=== PATIENT | male | born 1965 | race Caucasian/White ===

== ENCOUNTER 2023-12-29 13:21 | Outpatient (CLI) | payer OTHER, SELFPAY ==
--- NOTE | 2023-12-29 13:28 | ECG_ITS ---
Test Date: 2023-12-29 13:59:38 Measurements Intervals [place] Rate: 73 P: 26 KS: 171 QRS: 31 QRSD: 110 T: 25 QT: 379 QTc: 418 Interpretive Statements SINUS RHYTHM BORDERLINE R WAVE PROGRESSION, ANTERIOR LEADS BASELINE ARTIFACT- II, III, AVR, AVF, V6 BORDERLINE ECG No previous ECG available for comparison Electronically Signed On 12-29-2023 14:00:56 CDT by Arnoldo Mcfarland D.O.
[2023-12-29 14:31] LABS: Anion Gap 15 mmol/L (4-12); Blood Urea Nitrogen 19 mg/dL (9-20); Calcium 10.4 mg/dL (8.4-10.2); Carbon Dioxide 21 mmol/L (22-30); Chloride 104 mmol/L (98-107); Estimated Glomerular Filt Rate > 60; Glucose 86 mg/dL (65-110); Potassium 3.5 mmol/L (3.4-5.0); Sodium 140 mmol/L (137-145)
== END 2023-12-29 13:22 | disposition home or self-care (01) ==
PROVIDERS: Anesthesiology; PCP Family Medicine; Visit Provider Surgery
DX: K40.20 Bilateral inguinal hernia, without obstruction or gangrene, not specified as recurrent (principal); K42.9 Umbilical hernia without obstruction or gangrene; I10 Essential (primary) hypertension; Z79.899 Other long term (current) drug therapy; R94.31 Abnormal electrocardiogram [ECG] [EKG]
CPT/HCPCS: 36415; 80048; 86850; 86900; 86901; 93005

== ENCOUNTER 2024-01-06 02:04 | Day surgery (SDC) | payer OTHER, SELFPAY ==
[2023-12-28 10:40] VITALS: BMI 34.6
--- NOTE | 2023-12-28 10:54 | PC.NURSE ---
Addendum entered by Sincere Salazar RN 12/28/23 11:09: No Chewing tobacco day of surgery. Original Note: Report to the Outpatient Waiting Room, entrance under the green pavilion located off [facility], at time _1000_ on date _[id number]_. Planned Procedure Time: _1200_.? Time changes happen often and if your time is changed the preop area will call you the afternoon before. - You and your visitor will be asked to self-screen and do not enter if you have any COVID symptoms. Please call surgeon if you need to reschedule. - A mask is optional within the hospital at this time. Patients may have clear liquids (water, carbonated beverages, clear teas, apple juice) until 3 hours prior to surgery with a maximum of 20 ounces. - No food from midnight until time of surgery and no smoking Take only the following medications with a SIP of water on the morning of surgery: ___Amlodipine DO NOT STOP ANY OF YOUR OTHER PRESCRIPTION MEDICATIONS PRIOR TO SURGERY EXCEPT THE FOLLOWING Medications to discontinue per physician Phillip says he's stopping the Ibuprofen switching to tylenol. Please no make-up, nail indonesian, hairspray, perfume, deodorant, or body powder the day of surgery.? No jewelry (including any body piercings) or valuables the day of surgery, leave them at home.? Please take a shower or bath the night before, or the morning of, surgery with an antibacterial soap.? Wear comfortable, loose fitting clothing.? - Jewelry must be removed prior to entering the operating room.? Rings and piercings that are not removed may be cut off. - The hospital will not accept responsibility for valuables.? - Please leave all valuables, including medications, at home the day of surgery. If you are going home after surgery, a licensed armor reconnaissance vehicle driver must drive you home.? - NO public transportation without another adult if you receive anesthesia. - We recommend that an adult stay with you for 24 hours following discharge. - We also recommend that you do not drive, make important decision, drink alcoholic beverages, or take any drugs that were not prescribed by your health care provider for at least 24 hours after your discharge time. Follow any additional instructions given to you from your surgeon. Telephone instructions given to __Billy___and asked if any additional questions and then verbalized understanding. Patient advised to call surgeon office or pre surgery nurse liaison [phone] if any additional questions.
--- NOTE | 2024-01-06 10:15 | WPDHPUPDATE1 ---
History and Physical Update Update Date/Time: 01/06/24 10:15 History and Physical has been reviewed, including an updated exam of the patient. There are NO changes in the patient's condition. Risks, benefits, and alternatives have been discussed and questions answered. Patient agrees to proceed with procedure.
[2024-01-06 10:43] VITALS: BMI 34.4
[2024-01-06] MEDS: LACTATED RINGERS 1,000 ML 30 ML IV CONT ×2 (10:44→14:45)
[2024-01-06] MEDS: ACETAMINOPHEN 500 MG TABLET 1000 MG PO (10:57)
[2024-01-06] MEDS: KETOROLAC 15 MG/ML VIAL (*BKC) IV PUSH (10:57)
--- NOTE | 2024-01-06 11:58 | WPDANESEPPF ---
Anes - Initial Pre Proc Eval Procedure: Operation Date: 01/06/24 12:00 Proposed Procedures p Robotic Bilateral Inguinal Hernia Repair with Mesh, - Jessica Martinez MD s Open Umbilical Hernia Repair with Mesh - Jessica Martinez MD Date/Time: 01/06/24 11:58 Surgeon: Jessica Martinez MD Pre Op Diagnosis: Bilateral Inguinal Hernia, umbilical hernia Patient Data Age: 58 Gender: M Height: 1.78 m Weight: 109 kg Allergies Allergy/AdvReac Type Severity Reaction Status Date / Time Penicillins AdvReac Unknown VOMITTING Verified 01/06/24 10:39 Home Medications Medication Instructions Recorded Confirmed Type ibuprofen 800 mg tablet See Rx Instructions .Route 09/16/23 12/28/23 Rx .COMPLEX #90 tabs amlodipine 10 mg tablet (Norvasc) 10 mg PO DAILY #90 tabs 10/11/23 12/28/23 Rx hydrochlorothiazide 12.5 mg tablet 12.5 mg PO DAILY #90 tabs 10/11/23 12/28/23 Rx valsartan 160 mg tablet 320 mg PO DAILY #180 tabs 10/11/23 12/28/23 Rx allopurinol 100 mg tablet 200 mg PO DAILY #180 tabs 10/19/23 12/28/23 Rx Patient hx anesthesia problems: none Family hx anesthesia problems: none Results Review: All pre-operative results and documents have been reviewed as part of the pre-operative evaluation. [facility] Past Medical History Medical History Alcohol abuse Chronic gout Essential hypertension Impacted cerumen, bilateral Family History Family History Father Patient's father is in good health Mother Family history of malignant neoplasm of breast in first degree relative Family history of malignant neoplasm Social History Social History Smoking status: Never smoker Smokeless tobacco user: chewing tobacco Alcohol intake: current Drinks per week: 14 Substance use: never Do You Feel Safe in your Home?: Yes Lack of Transportation: No Lack of Food: Never True Current Housing: I Have Housing Concerned About Future Housing: No Difficulty Paying Gas/Electric Bills: No Difficulty Paying for Meds: No Currently Unemployed: No Education: Decline to Answer Difficulty w/ Childcare or Family Care: No Living arrangements: with family Occupation/Education: occupation Gender identity (if verbalized by the patient): Male Sexual Orientation (if Verbalized by the Patient): Straight or Heterosexual Spiritual care concerns: No Anes - Eval Final PreProcedure Day of Procedure 01/06/24 11:58 Patient weight: obese Heart: regular rate and rhythm Lungs: decreased breath sounds Airway: Mallampati scale class II Neurological: alert and oriented Last oral intake: >/= 8 hours ASA classification: III Emergent: no Anesthetic plan: proceed Anesthesia type and monitoring: general ETT and standard monitoring Results Review: All pre-operative results and documents have been reviewed as part of the pre-operative evaluation. Informed Consent: The patient's anesthetic plan and its attendant risks and benefits were discussed with the patient/family/POA. Questions were solicited and answers provided to the satisfaction of the patient/family/POA.
[2024-01-06] MEDS: ceFAZolin 2 GM/D5W 50 ML 2 GM/50 ML BAG IVPB (12:12)
[2024-01-06] MEDS: BUPIVACAINE/EPINEPHRINE 0.5% 50 ML VIAL 30 ML INFILTRATE (13:01)
--- NOTE | 2024-01-06 14:34 | W.PM.PROC2 ---
Procedure Note - Detailed Date of Procedure 01/06/24 Pre-op Diagnosis Bilateral Inguinal Hernia, umbilical hernia with defect measuring 3.5 cm Post-op Diagnosis Same Procedure Performed robotic assisted bilateral inguinal hernia repair with mesh, open umbilical hernia repair with defect measuring 3.5 cm with mesh Surgeon Jessica Martinez MD Anesthesia General and Local Indications 58-year-old male presenting to the office with bilateral inguinal hernia right greater than left, umbilical hernia Findings left pantaloon hernia, large right indirect hernia, umbilical hernia with 3.5 cm defect Description of Procedure Patient was brought into the operating room and placed in the supine position. After adequate induction of general anesthesia, the patient was prepped and draped in normal sterile fashion. A time-out was then done to verify the patient's identity, as well as the procedure being performed. I began by making a 8 mm incision in the supraumbilical region, a Veress needle was then placed into the peritoneal cavity. CO2 gas was then insufflated and after adequate pneumoperitoneum was achieved, the Veress needle was removed. I then placed an 8 mm trocar through this incision. I then placed the endoscope through this trocar site and under direct visualization placed 2 further 8 mm ports in the right and left mid abdomen. The [employer] robot was then docked to the 3 trocar sites. I then scrubbed out and went to the robotic console. Upon examining the pelvis, it was noted that the patient had a moderate left inguinal hernia. The right side was examined and a large hernia defect was noted. I began by making a preperitoneal flap approximately 6 cm superior to the left sided defect. This flap was carried medially past the umbilical ligaments and laterally to the transversalis. It then began dissection of my medial compartment taking this down to the pubic tubercle. Upon dissection of this area, a small direct hernia was encountered. I was able to dissect and reduce this direct hernia. I then began the lateral dissection taking this down to the transversalis fascia. Once these compartments were achieved, I began dissection around the cord structures. A moderate sized indirect hernia was noted at this point. Using careful dissection, was able to reduce indirect hernia sac off the cord structures. Once this was adequately done, I went ahead and placed a large piece of 3D Max mesh into the abdominal cavity. The mesh was carefully positioned, centering the center of the mesh over the indirect defect. Once this was done, was very satisfied with our repair. Using 3-0 Vicryl sutures, I tacked the mesh medially to Shawn's ligament. Two lateral sutures were placed from the mesh to the transversalis fascia. I then began on the right side by making a preperitoneal flap approximately 6 cm superior to the right sided defect. This flap was carried medially past the umbilical ligaments and laterally to the transversalis. It then began dissection of my medial compartment taking this down to the pubic tubercle. I then began the lateral dissection taking this down to the transversalis fascia. Once these compartments were achieved, I began dissection around the cord structures. A large indirect hernia was noted at this point. Using careful dissection, was able to reduce indirect hernia sac off the cord structures. There was also a very large lipoma of the cord that was reduced. Once this was adequately done, I went ahead and placed a large piece of 3D Max mesh into the abdominal cavity. The mesh was carefully positioned, centering the center of the mesh over the indirect defect. Once this was done, was very satisfied with our repair. Using 3-0 Vicryl sutures, I tacked the mesh medially to Shawn's ligament. Two lateral sutures were placed from the mesh to the transversalis fascia.I then closed the peritoneal flap bilaterally with running 2.0 V Lock suture x 2. Th
[2024-01-06 14:45] VITALS: BP 134/98; PULSE 125; RESP 20; TEMP 36.7; O2SAT 100
[2024-01-06 15:00] VITALS: BP 121/81; PULSE 102; RESP 18; O2SAT 99
[2024-01-06 15:15] VITALS: BP 127/81; PULSE 98; RESP 18; O2SAT 94
[2024-01-06] MEDS: fentaNYL CITRATE INJ (*CRX) 100 MCG/2 ML VIAL 25 MCG IV PUSH ×4 (15:17→15:26)
[2024-01-06 15:30] VITALS: BP 118/81; PULSE 98; RESP 18; O2SAT 94
[2024-01-06 15:39] VITALS: BP 125/81; PULSE 103
[2024-01-06 16:00] VITALS: BP 123/84; PULSE 88
[2024-01-06] MEDS: oxyCODONE HCL (*CRX) 5 MG TAB IR PO (16:12)
== END 2024-01-06 16:29 | disposition home or self-care (01) ==
PROVIDERS: PCP Family Medicine; Visit Provider Surgery
PROC: 8E0Y4CZ Robotic Assisted Procedure of Lower Extremity, Percutaneous Endoscopic Approach (ICD-10-PCS; CPT 49650; principal; 2024-01-06 12:00)
PROC: (CPT 49650; 2024-01-06 12:00)
DX: K40.20 Bilateral inguinal hernia, without obstruction or gangrene, not specified as recurrent (principal); K42.9 Umbilical hernia without obstruction or gangrene; I10 Essential (primary) hypertension; F17.220 Nicotine dependence, chewing tobacco, uncomplicated; E66.9 Obesity, unspecified; Z68.34 Body mass index [BMI] 34.0-34.9, adult; Z79.1 Long term (current) use of non-steroidal anti-inflammatories (NSAID); Z80.3 Family history of malignant neoplasm of breast
CPT/HCPCS: 49650; 49593; S2900; A9270; C1781; J0690; J1100; J1885; J2250; J2405; J3010; J7030; J7120

== ENCOUNTER 2024-02-12 11:00 | Outpatient (CLI) | payer OTHER, SELFPAY ==
--- NOTE | ~2024-02-12 | XR_ITS ---
XR hip RT 2V w AP pelvis DATE: 02/12/2024 11:22 INDICATION: Low back pain, right sciatica TECHNIQUE: AP pelvis. AP and lateral views of the right hip COMPARISON: None FINDINGS: Normal alignment at the pubic symphysis and sacroiliac joints. No fracture or bone destruction is evident. There is mild left hip osteoarthritis. There is severe right hip osteoarthritis with particularly severe joint space narrowing superolateral ly. 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 No right hip fracture or dislocation is noted. 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
--- NOTE | ~2024-02-12 | XR_ITS ---
XR lumbar spine 2-3V DATE: 02/12/2024 11:22 INDICATION: Low back pain with right-sided sciatica TECHNIQUE: AP, lateral, cone-down lateral lumbosacral views COMPARISON: None FINDINGS: There is degenerative spurring of the lower thoracic spine. There is minimal degenerative s purring of the lumbar spine. Lumbar and lumbosacral interspaces appear well preserved. No fracture or bone destruction is evident. Lumbar and included lower thoracic spine pedicles are int act. The included portions of the sacral iliac joints are unremarkable. IMPRESSION: Degenerative spurring of the thoracic and to a lesser extent lumbar spine Reviewed, dictated and finalized at location A.
== END 2024-02-12 11:01 | disposition home or self-care (01) ==
LOC: MICIMG 11:01
PROVIDERS: PCP Family Medicine; Referring Provider Chiropractor; Visit Provider Physician Assistant Medical
DX: M54.41 Lumbago with sciatica, right side (principal); M16.12 Unilateral primary osteoarthritis, left hip; M85.88 Other specified disorders of bone density and structure, other site
CPT/HCPCS: 72100; 73502

== ENCOUNTER 2024-06-13 10:14 | Outpatient (CLI) | payer OTHER, SELFPAY ==
[2024-06-13 10:49] LABS: Basophils Percent Auto 0.3 % (0.2-1.2); Eosinophils Absolute Auto 0.2 K/mm3 (0-0.3); Eosinophils Percent Auto 2.9 % (0-4.4); Hematocrit 40.1 % (42.0-52.0); Hemoglobin 13.5 g/dL (14.0-18.0); Immature Granulocyte Absolute 0.03 K/mm3 (0.00-0.031); Immature Granulocyte Percent A 0.4 % (0-0.5); Lymphocytes Percent Auto 19.1 % (18.3-44.2); Mean Corpuscular HGB Conc 33.7 g/dl (32-36); Mean Corpuscular Hemoglobin 32.8 pg (26-34); Mean Corpuscular Volume 97.3 fl (80-100); Mean Platelet Volume 8.8 fl (7.4-10.4); Monocytes Absolute Auto 0.9 K/mm3 (0.1-0.6); Monocytes Percent Auto 13.7 % (2.6-8.5); Neutrophils Absolute Auto 4.3 K/mm3 (1.3-6.7); Neutrophils Percent Auto 63.6 % (45.5-73.1); Platelet Count Result 201 k/mm3 (150-375); Red Blood Count 4.12 M/mm3 (4.6-6.20); Red Cell Distribution Width 13.7 % (11.5-14.5); White Blood Count 6.8 K/mm3 (4.5-10.0)
[2024-06-13 10:55] LABS: Add Urine Microscopic? YES; Appearance Urine Clear (Clear); Bacteria Urine None Seen /hpf; Bilirubin Urine Negative (Negative); Blood Urine Negative (Negative); Color Urine Dark Yellow (Yellow); Glucose Urine UA Negative (Negative); Ketones Urine Trace mg/dL (Negative); Leukocyte Esterase Ur Negative LEU/UL (Negative); Nitrate Urine Negative (Negative); Non Pathogenic Casts 0-2; Protein Urine 1+ mg/dL (Negative); RBC Urine 0-2 /hpf (0-2); Specific Grav Ur 1.024 (1.001-1.035); Squamous Epithelial Cell Urine None Seen /hpf (Few); WBC Urine 0-5 /hpf (0-3); pH Urine 5.5 (5.0-9.0)
[2024-06-13 10:56] LABS: Urine Cotinine NEGATIVE
[2024-06-13 11:14] LABS: Alanine Aminotransferase 39 U/L (6-50); Albumin Level 4.4 g/dL (3.5-5.1); Alkaline Phosphatase 81 U/L (38-126); Anion Gap 12 mmol/L (4-12); Aspartate Amino Transferase 54 U/L (17-59); Blood Urea Nitrogen 14 mg/dL (9-20); Calcium 9.2 mg/dL (8.4-10.2); Carbon Dioxide 20 mmol/L (22-30); Chloride 104 mmol/L (98-107); Cholesterol 195 mg/dL (0-200); Estimated Glomerular Filt Rate > 60; Glucose 107 mg/dL (65-110); HDL Direct 90 mg/dL; Potassium 3.7 mmol/L (3.4-5.0); Sodium 136 mmol/L (137-145); Triglycerides 63 mg/dL (<150); Uric Acid 8.8 mg/dL (3.5-8.5)
[2024-06-13 11:24] LABS: LDL Cholesterol Direct 66 mg/dL
[2024-06-13 11:40] LABS: Prostate Specific Antigen 0.7 ng/mL (< OR = 4.0)
[2024-06-13 13:07] LABS: Hemoglobin A1C 5.3 % (<5.7)
== END 2024-06-13 10:15 | disposition home or self-care (01) ==
LOC: ANHLAB 10:16
PROVIDERS: PCP Family Medicine; Referring Provider Physician Assistant; Visit Provider Orthopaedic Surgery
DX: Z00.00 Encounter for general adult medical examination without abnormal findings (principal); M1A.9XX0 Chronic gout, unspecified, without tophus (tophi); R73.01 Impaired fasting glucose; I10 Essential (primary) hypertension; Z12.5 Encounter for screening for malignant neoplasm of prostate; Z72.0 Tobacco use; F10.10 Alcohol abuse, uncomplicated; R53.83 Other fatigue
CPT/HCPCS: 36415; 80053; 80061; 80307; 81001; 83036; 84153; 84443; 84550; 85025; G0103

== ENCOUNTER 2024-07-06 07:53 | Outpatient (CLI) | payer OTHER, SELFPAY ==
[2024-07-06 09:44] LABS: INR 0.9; Prothrombin Time 12.9 Seconds (11.1-14.7)
[2024-07-06 09:45] LABS: Partial Thromboplastin Time 24.5 Seconds (22.3-36.8)
[2024-07-06 09:48] LABS: Urine Cotinine NEGATIVE
[2024-07-06 10:42] LABS: MRSA (PCR) NOT DETECTED (NOT DETECTE)
== END 2024-07-06 07:54 | disposition home or self-care (01) ==
LOC: ANHSURGERY 07:59
PROVIDERS: PCP Family Medicine; Visit Provider Orthopaedic Surgery
DX: M16.9 Osteoarthritis of hip, unspecified (principal); Z01.818 Encounter for other preprocedural examination
CPT/HCPCS: 80307; 85610; 85730; 86850; 86900; 86901; 87641

== ENCOUNTER 2024-08-10 13:54 | Outpatient (CLI) | payer OTHER, SELFPAY ==
--- NOTE | ~2024-08-10 | XR_ITS ---
EXAMINATION: XR lg joint inject/asp w image DATE: 08/10/2024 15:03 INDICATION: Right hip osteoarthritis with pain TECHNIQUE: A time-out was performed to verify the patient's name, date of , and procedure to b e performed. The procedure including the risks, benefits, and alternatives was discussed with the pat ient. Risks discussed included bleeding and infection. The patient understood the risks and agreed to proceed. The skin overlying the right hip joint was prepped and draped in usual sterile fashion. A nesthetic was administered with 1% lidocaine subcutaneously. A 22 G needle was advanced under fluoro scopic guidance into the joint. Injection of 1 mL of Omnipaque 240 confirmed intra-articular positio n of the needle. Subsequently, injectate consisting of 3 mL of a 2:1 mixture of 0.5% bupivacaine: 80 mg/mL Depo-Medrol for a total dose of 80 mg Depo-Medrol was instilled. Washout of contrast was seen confirming intra-articular administration. The needle was removed and the entry site was cleaned and dressed. There were no immediate complications. Fluoroscopy exposure time was 0.1 minutes. The total number of images was 2. Total DAP was 0.9 Gycm^2 FINDINGS: Real-time fluoroscopy demonstrates the needle in the right hip joint. Patient's pain prior to procedure:11/26. Patient's pain following the procedure: 07/27. IMPRESSION: 1. Successful right hip joint injection of local anesthetic and steroid with decrease in the patient' s presenting pain. Reviewed, dictated and finalized at location A. IMPRESSION: 1. Successful right hip joint injection of local anesthetic and steroid with de crease in the patient's presenting pain.
== END 2024-08-10 13:55 | disposition home or self-care (01) ==
PROVIDERS: PCP Family Medicine; Visit Provider Orthopaedic Surgery
DX: M16.11 Unilateral primary osteoarthritis, right hip (principal)
CPT/HCPCS: 20610; 77002; J1010; Q9966

== ENCOUNTER 2025-02-02 08:25 | Outpatient (CLI) | payer OTHER, SELFPAY ==
[2025-02-02 09:28] LABS: Hematocrit 38.5 % (42.0-52.0); Hemoglobin 13.1 g/dL (14.0-18.0); Immature Granulocyte Percent A 0.6 % (0-0.5); Lymphocytes Absolute Auto 1.14 K/mm3 (0.9-3.2); Mean Corpuscular HGB Conc 34.0 g/dl (32-36); Mean Corpuscular Hemoglobin 33.2 pg (26-34); Mean Corpuscular Volume 97.7 fl (80-100); Nucleated Red Blood Cells Absolute Auto 0.000 K/mm3 (0.0-0.012); Nucleated Red Blood Cells Perc 0.0 % (0.0-0.2); Platelet Count Result 229 k/mm3 (150-375); Red Blood Count 3.94 M/mm3 (4.6-6.20); White Blood Count 6.9 K/mm3 (4.5-10.0)
--- NOTE | 2025-02-02 09:37 | ECG_ITS ---
Test Date: 2025-02-02 09:45:28 Measurements Intervals [place] Rate: 54 P: 12 LA: 178 QRS: 29 QRSD: 110 T: 22 QT: 419 QTc: 398 Interpretive Statements SINUS BRADYCARDIA BASELINE ARTIFACT- I, II, III, AVR, AVL, AVF, V1-V2 BORDERLINE ECG Compared to ECG 12/29/2023 13:59:38 HEART RATE HAS DECREASED Electronically Signed On 02-02-2025 10:13:25 CDT by Arnoldo Mcfarland D.O.
[2025-02-02 09:44] LABS: Add Urine Microscopic? YES; Appearance Urine Clear (Clear); Glucose Urine UA Negative (Negative); Leukocyte Esterase Ur 1+ LEU/UL (Negative); Need Manual Microscopic Reviewed; Nitrate Urine Negative (Negative); Non Pathogenic Casts 0-2; Specific Grav Ur 1.019 (1.001-1.035)
[2025-02-02 09:50] LABS: Alanine Aminotransferase 63 U/L (6-50); Albumin Level 4.3 g/dL (3.5-5.1); Alkaline Phosphatase 81 U/L (38-126); Anion Gap 9 mmol/L (4-12); Aspartate Amino Transferase 66 U/L (17-59); Bilirubin,Total 1.1 mg/dL (0.2-1.3); Blood Urea Nitrogen 20 mg/dL (9-20); Calcium 10.1 mg/dL (8.4-10.2); Carbon Dioxide 25 mmol/L (22-30); Chloride 99 mmol/L (98-107); Estimated Glomerular Filt Rate > 60; Glucose 99 mg/dL (65-110); Potassium 3.4 mmol/L (3.4-5.0); Sodium 133 mmol/L (137-145); Total Protein 8.1 g/dL (6.3-8.2)
== END 2025-02-02 08:26 | disposition home or self-care (01) ==
PROVIDERS: Physician Assistant Medical; PCP Family Medicine; Visit Provider Orthopaedic Surgery
DX: Z00.00 Encounter for general adult medical examination without abnormal findings (principal); R94.31 Abnormal electrocardiogram [ECG] [EKG]; I10 Essential (primary) hypertension; R53.83 Other fatigue; R73.01 Impaired fasting glucose; F10.10 Alcohol abuse, uncomplicated; M1A.9XX0 Chronic gout, unspecified, without tophus (tophi); R82.90 Unspecified abnormal findings in urine; Z72.0 Tobacco use
CPT/HCPCS: 36415; 80053; 80307; 81001; 85025; 87086; 93005

== ENCOUNTER 2025-02-08 11:40 | Outpatient (CLI) | payer OTHER, SELFPAY ==
[2025-02-08 12:55] LABS: Hemoglobin A1C 5.1 % (<5.7)
[2025-02-08 12:57] LABS: INR 1.0; Prothrombin Time 13.3 Seconds (11.1-14.7)
[2025-02-08 12:58] LABS: Partial Thromboplastin Time 25.0 Seconds (22.3-36.8)
[2025-02-08 13:58] LABS: MRSA (PCR) NOT DETECTED (NOT DETECTE)
== END 2025-02-08 11:41 | disposition home or self-care (01) ==
LOC: ANHSURGERY 11:46
PROVIDERS: PCP Family Medicine; Visit Provider Orthopaedic Surgery
DX: M16.9 Osteoarthritis of hip, unspecified (principal); Z01.818 Encounter for other preprocedural examination
CPT/HCPCS: 36415; 83036; 85610; 85730; 86850; 86900; 86901; 87641

== ENCOUNTER 2025-02-14 02:14 | Day surgery (SDC) | payer OTHER, SELFPAY ==
--- NOTE | 2025-02-08 11:45 | PC.NURSE ---
[facility] has started construction of its new state of the art ER which will open Spring 2026. With this, we anticipate parking may be a challenge for some our surgical patients and families. Parking spaces are limited but are available for all Surgical, obstetrics, and ER patients sharing this lot. If you arrive and find you are having a hard time finding a parking space, please note that we understand the challenges, please drive around the hospital and park near Hospital Entrance 1. When you enter this entrance, you can ask a volunteer to direct or take you back to the surgical waiting area to check in. We appreciate everyone?s understanding of these expected challenges while we build for your future. Report to the Outpatient Waiting Room, entrance under the green pavilion located off [address], at time __6 AM on date _02/14/25 . Planned Procedure Time: __7:30 AM .? Time changes happen often and if your time is changed the preop area will call you the afternoon before. - You and your visitor will be asked to self-screen and do not enter if you have any COVID symptoms. Please call surgeon if you need to reschedule. - A mask is optional within the hospital at this time. Patients may have clear liquids (water, carbonated beverages, clear teas, apple juice) until 3 hours prior to surgery( 4:30 AM) with a maximum of 20 ounces. - No food from midnight until time of surgery and no smoking, or chewing tobacco (or any form of nicotine). No chewing gum, candy or mints. - Take only the following medications with a SIP of water on the morning of surgery: ___AMLODIPINE DO NOT STOP ANY OF YOUR OTHER PRESCRIPTION MEDICATIONS PRIOR TO SURGERY EXCEPT THE FOLLOWING Hold all vitamins and supplements for 3 days per anesthesiologist. Medications to discontinue per physician IBUPROFEN_PER DR CHAVEZ Date to take last dose Please no make-up, nail belarusian, hairspray, perfume, deodorant, or body powder the day of surgery.? No jewelry (including any body piercings) or valuables the day of surgery, leave them at home.? Please take a shower or bath the night before, or the morning of, surgery with an antibacterial soap.? Wear comfortable, loose fitting clothing.? Children are encouraged to wear pajamas. - Jewelry must be removed prior to entering the operating room.? Rings and piercings that are not removed may be cut off. - The hospital will not accept responsibility for valuables.? - Please leave all valuables, including medications, at home the day of surgery. If you are going home after surgery, a licensed petrol tanker driver must drive you home.? - NO public transportation without another adult if you receive anesthesia. - We recommend that an adult stay with you for 24 hours following discharge. - We also recommend that you do not drive, make important decision, drink alcoholic beverages, or take any drugs that were not prescribed by your health care provider for at least 24 hours after your discharge time. For Pediatric surgeries, we recommend two adults accompany the child home. Follow any additional instructions given to you from your surgeon. VERBAL AND WRITTEN instructions given to __PATIENT and asked if any additional questions and then verbalized understanding. Patient advised to call surgeon office or pre surgery nurse liaison [phone] if any additional questions.
[2025-02-08 11:50] VITALS: BMI 33.7
[2025-02-08 12:32] VITALS: BP 133/88; PULSE 84; RESP 18; TEMP 37.3; O2SAT 98
[2025-02-14] VITALS (12 sets, daily range): BP systolic 105–132; BP diastolic 67–87; PULSE 54–90; RESP 10–18; TEMP 36.1–36.8; O2SAT 93–100; BMI 33.4
--- NOTE | ~2025-02-14 | XR_ITS ---
EXAMINATION: XR hip RT min 2V, 02/14/2025 11:34 CDT HISTORY: POST OP RIGHT CORBIN COMPARISON: No comparisons available. Findings: No acute fracture or malalignment. Arthroplasty intact Soft tissues unremarkable. Impression: No acute fracture or malalignment. Reviewed, dictated and finalized at location P. Impression: No acute fracture or malalignment.
[2025-02-14] MEDS: LACTATED RINGERS 1,000 ML 30 ML IV CONT ×2 (06:25→10:55)
[2025-02-14] MEDS: ACETAMINOPHEN 500 MG TABLET 1000 MG PO (06:32)
--- NOTE | 2025-02-14 07:00 | P.PNAN_ITS ---
Anes - Initial Pre Proc Eval Procedure: Operation Date: 02/14/25 07:30 Proposed Procedures p Right Total Hip Arthroplasty - Shashi Navarro MD Date/Time: 02/14/25 07:00 Surgeon: Shashi Navarro MD Pre Op Diagnosis: Rt Hip DJD Patient Data Age: 59 Gender: M Height: 1.8 m Weight: 109.8 kg Last Vital Signs Temp 37.3 C 02/08/25 12:32 Pulse 84 02/08/25 12:32 Resp 18 02/08/25 12:32 BP 133/88 02/08/25 12:32 Pulse Ox 98 02/08/25 12:32 O2 Del Method Room Air 02/08/25 12:32 Allergies Allergy/AdvReac Type Severity Reaction Status Date / Time Penicillins AdvReac Unknown VOMITTING Verified 02/08/25 11:51 Home Medications ?Medication ?Instructions ?Recorded ?Confirmed ?Type amlodipine 10 mg tablet (Norvasc) 10 mg PO DAILY #90 t abs 10/11/23 02/08/25 Rx valsartan 160 mg tablet 320 mg (2 x 160 mg) PO DAILY #180 10/11/23 02/08/25 Rx tabs chlorhexidine gluconate 4 % 1 applic topical ONCE #237 mL 07/04/24 02/08/25 Rx topical liquid (Hibiclens) acetaminophen 500 mg tablet 1,000 mg PO Q6H PRN pain 0 07/06/24 02/08/25 History (Acetaminophen Extra Strength) allopurinol 100 mg tablet 200 mg (2 x 100 mg) PO DAILY #180 08/04/24 02/08/25 Rx tabs hydrochlorothiazide 25 mg tablet See Rx Instructions . Route 08/17/24 02/08/25 Rx .COMPLEX #90 tabs ibuprofen 800 mg tablet 800 mg PO TID PRN pain #30 t abs 12/15/24 02/08/25 Rx chlorhexidine gluconate 4 % 1 applic topical ONCE #237 mL 02/07/25 02/08/25 Rx topical liquid (Hibiclens) Patient hx anesthesia problems: none Family hx anesthesia problems: none Results Review: All pre-operative results and documents have been reviewed as part of the pre- operative evaluation. [facility] Past Medical History Medical History Poor dentition Right hip pain Degenerative joint disease (DJD) of hip Impacted cerumen, bilateral Alcohol abuse Chronic gout Essential hypertension Surgical History Surgical History Hx of bilateral inguinal hernia repair robotic assisted bilateral inguinal hernia repair with mesh, open umbilical hernia repair with defect measuring 3.5 cm with mesh 01/06/[address] Martinez. Family History Family History Father Patient's father is in good health Mother Family history of malignant neoplasm of breast in first degree relative Family history of malignant neoplasm Grandparent Hypertension Social History Social History Smoking status: Former smoker Tobacco type: smokeless tobacco Smokeless tobacco user: chewing tobacco Alcohol intake: current Drinks per week: 14 Alcohol use details: HX ALCOHOL ABUSE Substance use: never Do You Feel Safe in your Home?: Yes Lack of Transportation: No Lack of Food: Never True Current Housing: I Have Housing Concerned About Future Housing: No Difficulty Paying Gas/Electric Bills: No Difficulty Paying for Meds: No Currently Unemployed: No Education: Decline to Answer Difficulty w/ Childcare or Family Care: No Living arrangements: with family Additional living arrangements comments: [facility] Occupation/Education: occupation Gender identity (if verbalized by the patient): Male Sexual Orientation (if Verbalized by the Patient): Straight or Heterosexual Spiritual care concerns: No Anes - Eval Final PreProcedure Day of Procedure 02/14/25 07:00 Patient weight: obese Heart: regular rate and rhythm Lungs: clear to auscultation Airway: Mallampati scale class II Neurological: alert and oriented Last oral intake: >/= 8 hours ASA classification: III Emergent: no Anesthetic plan: proceed Anesthesia type and monitoring: general ETT and standard monitoring Results Review: All pre-operative results and documents have been reviewed as part of the pre- operative evaluation. Informed Consent: The patient's anesthetic plan and its attendant risks and benefits were discussed with the patient/family/POA. Questions were solicited and answers provided to the satisfaction of the patient/family/POA.
[2025-02-14] MEDS: TRANEXAMIC ACID 1,000MG/ISO100 1,000 MG/100 ML BAG 200 MG IVPB (07:05)
--- NOTE | 2025-02-14 07:23 | WPDHPUPDATE1 ---
History and Physical Update Update Date/Time: 02/14/25 07:23 History and Physical has been reviewed, including an updated exam of the patient. There are NO changes in the patient's condition. Risks, benefits, and alternatives have been discussed and questions answered. Patient agrees to proceed with procedure.
[2025-02-14] MEDS: ceFAZolin 2 GM in SODIUM CHLORIDE 0.9% IV 50 ML 100 ML IVPB ×2 (07:34→14:03)
[2025-02-14] MEDS: SODIUM CHLORIDE 0.9% IV 37.7 ML, MORPHINE SULFATE INJ (*CRX) 2 MG, ROPivacaine HCL 1% 2... INFILTRATE (08:29)
[2025-02-14] MEDS: TRANEXAMIC ACID 1,000 MG/10 ML AMPUL 1000 MG IV PUSH (10:05)
[2025-02-14] MEDS: fentaNYL CITRATE INJ (*CRX) 100 MCG/2 ML VIAL 25 MCG IV PUSH ×4 (11:05→11:38)
--- NOTE | 2025-02-14 11:22 | P.OP_ITS ---
Procedure Note - Detailed Date of Procedure 02/14/25 Pre-op Diagnosis Rt Hip DJD Post-op Diagnosis Same Procedure Performed RIGHT CORBIN Surgeon Shashi Navarro MD Anesthesia General Description of Procedure THE PATIENT WAS TAKEN TO THE OPERATING ROOM IN STABLE CONDITION AND WAS PLACED IN THE LATERAL DECUBITUS AND THE RIGHT LOWER EXTREMITY WAS PREPPED AND DRAPED IN THE STERILE FASHION. INCISION WAS MADE IN THE POSTERIOR LATERAL SIDE OF THE HIP, DOWN TO THE FASCIA LAYER. THE FASCIA WAS INCISED. THE HIP WAS EXPOSED. THE SHORT EXTERNAL ROTATORS WERE EXPOSED. THE SCIATIC NERVE WAS IDENTIFIED. INCISION WAS MADE THROUGH THE SHORT EXTERNAL ROTATORS AND THE CAPSULE OF THE HIP JOINT. THE HIP WAS DISLOCATED. AN OSTEOTOMY WAS MADE TO THE FEMORAL NECK ABOUT 1 CM PROXIMAL TO THE LESSER TROCHANTER. THE ACETABULUM WAS EXPOSED. THERE WAS SEVERE DJD SEEN. BEGINNING WITH A 49 REAMER THE ACETABULUM WAS REAMED TO 55 MM. A 56 MM TRIAL WAS PLACED IN 35 DEG OF ABDUCTION AND ANTEVERSION WAS IN ALIGNMENT WITH THE TRANS ACETABULAR LIGAMENT. THE FIT WAS EXCELLENT. THE TRIAL WAS REMOVED. A 56 MM BIOMET G7 COMPONENT WAS THEN TAPPED IN TO PLACE IN 35 DEG OF ABDUCTION AND ANTEVERSION IN ALIGNMENT WITH THE TRANSVERSE ACETABULAR LIGAMENT. THE FIT WAS EXCELLENT. PERIACETABULAR OSTEOPHYTES WERE REMOVED. THE ACETABULAR LINER WAS PLACED AND CHECKED FOR STABILITY. NEXT THE FEMUR WAS PREPARED WITH INITIAL CANAL FINDER THEN SEQUENTIAL BROACHING WITH A TAPERLOC HIP SYSTEM, UNTIL A 14 BROACH FIT WELL IN 15 OF ANTEVERSION. A 9 STANDARD OFFSET NECK WITH 36 MM HEAD TRIAL WAS PLACED. THE SHUCK TEST WAS EXCELLENT AND THE STABILITY IN FLEXION AND ROTATION WAS EXCELLENT. LEG LENGTHS WERE GROSSLY EQUAL. TRIALS WERE REMOVED. A BIOMET TAPERLOC 14 STEM WAS PLACED WITH A STANDARD OFFSET NECK. THE FIT WAS EXCELLENT IN 15 DEG OF ANTEVERSION. A 9 36 MM FEMORAL HEAD WAS PLACED. THE HIP WAS TRIALED AND THE STABILITY WAS EXCELLENT WERE THE LEG LENGTHS AND THE SHUCK TEST. THE WOUND WAS IRRIGATED WITH STERILE BETADINE AND WATER FOR 3 MIN. THEN WASHED AGAIN. THE CAPSULE AND THE EXTERNAL ROTATORS WERE APPROXIMATED WITH NUMBER 1 VICRYL. THE FASCIA WITH No 2 QUIL AND THE SUB CUTANEOUS LAYER WITH 2-0 ABSORBABLE SUTURE WITH A RUNNING 3-0 SUBCUTICULAR LAYER WELL. DERMABOND WAS PLACED AND STERILE DRESSING WAS MARYJO LIED. PATIENT WAS PLACED BACK ON TO THE SUPINE POSITION AND WAS EXTUBATED Estimated Blood Loss 150 Complications No immediate complications Condition Stable Disposition PACU
[2025-02-14] MEDS: ONDANSETRON INJ 4 MG/2 ML VIAL IV PUSH (11:48)
--- NOTE | 2025-02-14 12:50 | PC.NURSE ---
This patient, Phillip Gayle Ashok Tucker, was received from [PACU ] on 02/14/25 at 1250. Patient/family oriented to unit policies and routines. Report was called to me from [facility].
[2025-02-14] MEDS: SENNA/DOCUSATE SODIUM TABLET 2 TAB PO ×2 (12:51→20:49)
[2025-02-14] MEDS: ASPIRIN 325 MG ENTERIC TABLET PO ×2 (12:52→20:48)
[2025-02-14] MEDS: VALSARTAN 160 MG TABLET 320 MG PO (12:52)
[2025-02-14] MEDS: FAMOTIDINE 20 MG TABLET PO ×2 (12:53→20:49)
[2025-02-14] MEDS: KETOROLAC 15 MG/ML VIAL (*BKC) IV PUSH ×2 (12:53→17:08)
[2025-02-14] MEDS: SODIUM CHLORIDE 0.9% IV 1,000 ML 125 ML IV CONT ×2 (12:56→21:55)
[2025-02-14] MEDS: oxyCODONE/ACETAMINOPHEN (*CRX) 10-325 MG TABLET 1 TAB PO (15:50)
[2025-02-14] MEDS: HYDROmorphone HCL INJ (*CRX) 1 MG/ML SYR IV PUSH (20:46)
[2025-02-15] MEDS: ceFAZolin 2 GM in SODIUM CHLORIDE 0.9% IV 50 ML 100 ML IVPB ×2 (00:02→06:00)
[2025-02-15] MEDS: KETOROLAC 15 MG/ML VIAL (*BKC) IV PUSH ×3 (00:03→11:22)
[2025-02-15 01:05] VITALS: BP 99/63; PULSE 80; RESP 14; TEMP 36.8; O2SAT 93
[2025-02-15] MEDS: oxyCODONE/ACETAMINOPHEN (*CRX) 10-325 MG TABLET 1 TAB PO ×2 (03:06→09:30)
[2025-02-15 05:51] LABS: Hematocrit 28.7 % (42.0-52.0); Hemoglobin 9.5 g/dL (14.0-18.0); Immature Granulocyte Percent A 0.9 % (0-0.5); Lymphocytes Absolute Auto 0.60 K/mm3 (0.9-3.2); Mean Corpuscular HGB Conc 33.1 g/dl (32-36); Mean Corpuscular Hemoglobin 33.7 pg (26-34); Mean Corpuscular Volume 101.8 fl (80-100); Nucleated Red Blood Cells Absolute Auto 0.000 K/mm3 (0.0-0.012); Nucleated Red Blood Cells Perc 0.0 % (0.0-0.2); Platelet Count Result 183 k/mm3 (150-375); Red Blood Count 2.82 M/mm3 (4.6-6.20); White Blood Count 15.1 K/mm3 (4.5-10.0)
[2025-02-15 06:00] VITALS: BP 117/67; PULSE 88; RESP 18; TEMP 36.7; O2SAT 96
[2025-02-15 06:11] LABS: Anion Gap 7 mmol/L (4-12); Blood Urea Nitrogen 28 mg/dL (9-20); Calcium 8.4 mg/dL (8.4-10.2); Carbon Dioxide 22 mmol/L (22-30); Chloride 102 mmol/L (98-107); Estimated CRCL calculation 74 ml/min; Estimated Glomerular Filt Rate > 60; Glucose 154 mg/dL (65-110); Potassium 4.4 mmol/L (3.4-5.0); Sodium 131 mmol/L (137-145)
[2025-02-15] MEDS: SENNA/DOCUSATE SODIUM TABLET 2 TAB PO (08:14)
[2025-02-15] MEDS: VALSARTAN 160 MG TABLET 320 MG PO (08:14)
[2025-02-15] MEDS: FAMOTIDINE 20 MG TABLET PO (08:15)
[2025-02-15] MEDS: ASPIRIN 325 MG ENTERIC TABLET PO (08:15)
--- NOTE | 2025-02-15 09:24 | PM.PNORT ---
Progress Note: A&P Assessment and Plan (1) S/P total hip arthroplasty: Qualifiers: Laterality: right Qualified Code(s): Z96.641 - Presence of right artificial hip joint Code(s): Z96.649 - Presence of unspecified artificial hip joint Status: Acute Assessment and Plan: POD #1 : Right CORBIN Continue PT/OT. WBAT. Walker. HIGH FALL RISK. Continue pain control. Ice Hip. Protect skin. DVT prophylaxis with Aspirin. SCDs. Incentive Spirometry Use reviewed. Monitor Dressing. Change prior to discharge. Bowel Regimen. Dispo: Home with Home Health pending progress with PT/OT Plan Reviewed history, exam, radiographs and current labs with attending MD and covering surgeon, Dr. Navarro, who agrees with current plan as indicated above. No further recommendations from Dr. Navarro at this time. Subjective Subjective Date/Time Seen: 02/15/25 09:24 Post Op day: 1 Interval history: POD #1: Right CORBIN Patient doing very well. Pain well controlled. Walking in hallway with PT. Hopeful for d/c home today. Review of Systems Review of Systems: All systems reviewed & are unremarkable except as noted in HPI and below Constitutional: Constitutional: Denies chills, Denies fever(s), Denies headache(s), Denies lethargy and Reports weakness ENT: Denies headache(s) Cardiovascular: Cardiovascular: Denies chest pain, Denies diaphoresis, Denies lightheadedness, Denies palpitations, Denies dyspnea and Denies dyspnea on exertion Respiratory: Respiratory: Denies cough, Denies dyspnea and Denies dyspnea on exertion Gastrointestinal: Gastrointestinal: Denies constipation, Denies diarrhea, Denies nausea and Denies vomiting Genitourinary: Genitourinary: Denies dysuria, Reports urinary frequency and Denies urinary hesitancy Musculoskeletal: Musculoskeletal: Reports joint swelling (Right Hip ) and Reports limited range of motion (Right Hip due to recent surgery ) Neurologic: Denies headache(s) Endocrine: Endocrine: Denies palpitations Exam Const: General: comfortable and no acute distress Resp: Effort & Inspection: normal respiratory effort Cardio: Rate: regular rate Rhythm: regular rhythm GI: Inspection: non-distended Skin: General skin exam: normal color Other: Incision right hip c/d/i. Surrounding tissue without redness/warmth. Mild swelling consistent with recent surgery. No drainage. Neuro: Cognition (Neuro): normal cognition Speech: normal speech Extrem: Right lower extremity: normal to inspection, normal capillary refill, hip/thigh Details: tenderness Location: of the hip (Thigh soft ) Location: laterally and anteriorly, swelling Location: at the hip, abnormal ROM (limited consistent with recent surgery ) Details: pain with active ROM during and pain with passive ROM during and other (Incision c/d/i. ); no deformity and no unusual warmth, knee Details: normal to inspection; no tenderness and no swelling, lower leg (Negative Olivia's Sign ) Details: normal to inspection and no edema; no tenderness, ankle (+ankle dorsiflexion/plantarflexion) Details: normal to inspection and no edema; no tenderness, no swelling and no ecchymosis and foot Details: normal capillary refill, toes with normal ROM, vascular exam Details: dorsalis pedis pulse present and motor-sensory exam Details: light-touch normal; no tenderness Objective Data Vital Signs Vital Signs: Vital Signs - 24 hr 02/14/25 10:55 02/14/25 11:10 02/14/25 11:25 Temperature 36.3 C L Pulse Rate 54 L 65 75 Respiratory Rate 10 L 18 18 Blood Pressure 115/69 113/83 112/72 Pulse Oximetry 96 100 93 Oxygen Delivery Simple Face Mask Simple Face Mask Room Air Oxygen Flow Rate 10 6 02/14/25 11:40 02/14/25 11:55 02/14/25 12:10 Temperature Pulse Rate 64 63 73 Respiratory Rate 16 14 17 Blood Pressure 110/84 113/78 105/85 Pulse Oximetry 93 96 95 Oxygen Delivery Room Air Room Air Room Air Oxygen Flow Rate 02/14/25 12:46 02/14/25 12:53 02/14/25 13:28 Temperature 36.6 C Pulse Rate 73 73 Respiratory Rate 18 16 Blood Pressure 125/74 125/74 Pulse Oximetry 96 96 Oxygen Delivery Room Air Oxygen Flow Rate 02/14/25 14:54 02/14/25 17:58 02/14/25 20:00 Temperature 36.1 C L Pulse Rate 90 80 Respiratory Rate 14 14 Blood Pressure 113/78 Pulse Oximetry 100 93 Oxygen Delivery Room Air Room Air Oxygen Flow Rate 02/14/25 21:58 02/15/25 01:05 02/15/25 06:00 Temperature 36.6 C 36.8 C 36.7 C Pulse Rate 86 80 88 Respiratory Rate 18 14 18 Blood Pressure 109/67 99/63 L 117/67 Pulse Oximetry 98 93 96 Oxygen Delivery Oxygen Flow Rate Intake/Output Intake/Output: Intake & Output 02/12/25 02/13/25 02/14/25 02/15/25 23:59 23:59 23:59 23:59 Intake Total 2346 150 Balance 2346 150 Meds/Results Medications: Active Medications Generic Name Dose Route Start Last Admin Trade Name Freq PRN Reason Stop Dose Admin Acetaminophen 1,000 mg 02/14/25 12:13 Acetaminophen 500 Mg Tablet PO Q6H PRN Mild Pain (1-3) Allopurinol 200 mg 02/14/25 13:00 02/15/25 08:15 Allopurinol 100 Mg Tablet PO 200 mg DAILY MIGUEL ANGEL Administration Amlodipine Besylate 10 mg 02/14/25 13:00 02/15/25 08:15 Amlodipine Besylate 10 Mg Tablet PO 10 mg DAILY MIGUEL ANGEL Administration Aspirin 325 mg 02/14/25 12:13 02/15/25 08:15 Aspirin 325 Mg Enteric Tablet PO 325 mg Q12HR MIGUEL ANGEL Administration Diazepam 5 mg 02/14/25 12:13 Diazepam (*Crx) 5 Mg Tablet PO Q6H PRN Anxiety/Muscle Spasm Diphenhydramine HCl 25 mg 02/14/25 12:13 Diphenhydramine Hcl Inj 50 Mg/Ml Vial IV PUSH Q6H PRN Itching Famotidine 20 mg 02/14/25 13:00 02/15/25 08:15 Famotidine 20 Mg Tablet PO 20 mg Q12HR MIGUEL ANGEL Administration Hydrochlorothiazide 25 mg 02/14/25 13:00 02/15/25 08:15 Hydrochlorothiazide 25 Mg Tablet BY MOUTH 25 mg DAILY MIGUEL ANGEL Administration Hydromorphone HCl 1 mg 02/14/25 12:13 02/14/25 20:46 Hydromorphone Hcl Inj (*Crx) 1 Mg/Ml Syr IV PUSH 1 mg Q2H PRN Administration Breakthrough Pain Rated 7-10 or NPO Hydromorphone HCl 0.5 mg 02/14/25 12:13 Hydromorphone Hcl Inj (*Crx) 1 Mg/Ml Syr IV PUSH Q2H PRN Breakthrough Pain Rated 4-6 or NPO Sodium Chloride 1,000 mls @ 125 mls/hr 02/14/25 12:13 02/14/25 21:55 Normal Saline Iv IV CONT 125 mls/hr .Q8H MIGUEL ANGEL Administration Ibuprofen 800 mg in 200 mls @ 400 mls/hr 02/14/25 12:13 Caldolor 800 Mg/200 Ml IVPB Q6H PRN Breakthrough Pain Rated 1-3 or NPO Ketorolac Tromethamine 15 mg 02/14/25 12:13 02/15/25 05:57 Ketorolac 15 Mg/Ml Vial (*Bkc) IV PUSH 02/15/25 12:01 15 mg Q6HR MIGUEL ANGEL Administration Naloxone HCl 0.1 mg 02/14/25 12:13 Naloxone Hcl 0.4 Mg/Ml Vial IV PUSH Q2M PRN Opiate Reversal Ondansetron HCl 4 mg 02/14/25 12:13 Ondansetron Inj 4 Mg/2 Ml Vial IV PUSH Q4H PRN Nausea And Vomiting Oxycodone/Acetaminophen 1 tablet 02/14/25 12:13 Oxycodone/Acetaminophen (*Crx) 5-325 Mg Tablet PO Q4H PRN Pain Rated 4-6 Oxycodone/Acetaminophen 1 tab 02/14/25 12:13 02/15/25 03:06 Oxycodone/Acetaminophen (*Crx) 10-325 Mg Tablet PO 1 tab Q6H PRN Administration Pain Rated 7-10 Polyethylene Glycol 17 gm 02/14/25 13:00 02/15/25 08:14 Polyethylene Glycol 3350 17 Gm Powd.Pack PO 17 gm QAM MIGUEL ANGEL Administration Senna/Docusate Sodium 2 tab 02/14/25 13:00 02/15/25 08:14 Senna/Docusate Sodium Tablet PO 2 tab BID MIGUEL ANGEL Administration Valsartan 320 mg 02/14/25 13:00 02/15/25 08:14 Valsartan 160 Mg Tablet PO 320 mg DAILY MIGUEL ANGEL Administration Radiology Results: ITS Impressions Hip X-Ray 02/14/25 11:42 Impression: No acute fracture or malalignment. Labs Labs: Laboratory Results - last 24 hr 02/15/25 02/15/25 05:02 05:03 WBC 15.1 H RBC 2.82 L Hgb 9.5 L D Hct 28.7 L MCV 101.8 H MCH 33.7 MCHC 33.1 RDW 13.7 Plt Count 183 MPV 9.2 Immature Gran % (Auto) 0.9 H Neut % (Auto) 85.1 H Lymph % (Auto) 4.0 L Angelina % (Auto) 9.9 H Eos % (Auto) 0.0 Baso % (Auto) 0.1 L Lymph # (Auto) 0.60 L Angelina # (Auto) 1.5 H Eos # (Auto) 0.0 Baso # (Auto) 0.0 Abs Immat Gran (auto) 0.13 H Absolute Neuts (auto) 12.8 H Absolute Nucleated RBC 0.000 Nucleated RBC % 0.0 Sodium 131 L Potassium 4.4 Chloride 102 Carbon Dioxide 22 Anion Gap 7 BUN 28 H Creatinine 1.23 Estim Creat Clear Calc 74 Estimated GFR > 60 Glucose 154 H Calcium 8.4 Quality VTE Prophylaxis VTE prophylaxis: mechanical ordered
== END 2025-02-15 13:30 | disposition home health service (06) ==
LOC: ANHSURGERY 06:02 → ANH3MEDSUR 12:16
PROVIDERS: PCP Family Medicine; Visit Provider Orthopaedic Surgery
PROC: (CPT 27130; principal; 2025-02-14 07:30)
DX: M16.11 Unilateral primary osteoarthritis, right hip (principal); M25.751 Osteophyte, right hip; I10 Essential (primary) hypertension; M1A.9XX0 Chronic gout, unspecified, without tophus (tophi); F17.220 Nicotine dependence, chewing tobacco, uncomplicated; E66.9 Obesity, unspecified; Z68.33 Body mass index [BMI] 33.0-33.9, adult; Z79.1 Long term (current) use of non-steroidal anti-inflammatories (NSAID); Z98.890 Other specified postprocedural states; Z80.3 Family history of malignant neoplasm of breast
CPT/HCPCS: 27130; 36415; 73502; 80048; 85025; 97110; 97116; 97161; 97166; 97530; 97535; J0690; A9270; C1776; J0166; J1100; J1171; J1885; J2003; J2250; J2270; J2405; J2704; J2795; J3010; J3290; J7030; J7120